=== PATIENT | male | born 1955 | race Two or more races ===

== ENCOUNTER 2019-09-10 09:45 | Outpatient (CLI) | payer OTHER ==
[~2019-09-10] VITALS: Ht 165.1 cm; Wt 72.6 kg
--- NOTE | 2019-09-10 14:00 | Consultation ---
DATE OF CONSULTATION: 09/10/2019 GASTROENTEROLOGY CONSULTATION CONSULTING PHYSICIAN: Fabian Linn MD. CHIEF COMPLAINT: Referral for screening colonoscopy. PAST MEDICAL HISTORY: 1. Diabetes. 2. Asthma. 3. Hypertension. 4. Cirrhosis. PAST SURGICAL HISTORY: None. MEDICATIONS: Please see medication reconciliation list. FAMILY HISTORY: No family history of GI malignancy. SOCIAL HISTORY: The patient used to drink, quit in 2018. Denies any IV drug abuse. Denies any tobacco abuse. ALLERGIES: No known drug allergies. PHYSICAL EXAMINATION: VITAL SIGNS: Temperature 98.4, blood pressure 107/79, pulse 72, respirations 20. HEENT: Normocephalic and atraumatic. Sclerae anicteric. NECK: Supple. No evidence of obvious lymphadenopathy. CARDIOVASCULAR: Regular rate and rhythm. Plus S1-S2. LUNGS: Clear to auscultation bilaterally ABDOMEN: Positive bowel sounds. Soft and nontender. No rebound. No guarding. No peritoneal sign. EXTREMITIES: No cyanosis, no clubbing, no edema. ASSESSMENT AND PLAN: A 64-year-old male, who needs a screening colonoscopy. Also, he had history of cirrhosis, so needs an endoscopy for evaluation of varices. Plan to schedule when the authorization is obtained. Also, the patient off and on had stool OB positive for blood. Fabian Linn M.D. DR: NICO JOB#: [id number] CC:
[2019-09-10] MEDS ORDERED: VITAMIN D350 MC1 PO (14:42)
[2019-09-10] MEDS ORDERED: DULERA 100 MCG/13 GM INH (14:42)
[2019-09-10] MEDS ORDERED: ZYRTEC10 MG ORAL (14:42)
[2019-09-10] MEDS ORDERED: HUMALOG KW200 UNIT/1 SQ (14:42)
[2019-09-10] MEDS ORDERED: LANTUS SOL100 UNIT/1 SUBQ (14:42)
[2019-09-10] MEDS ORDERED: PROVENTIL HFA6.7 G1 IH (14:42)
[2019-09-10] MEDS ORDERED: LOSARTAN POTASS25 MG ORAL (14:42)
== END 2019-09-10 11:45 | disposition home or self-care (01) ==
LOC: PAN 09:45
DX: K74.60 Unspecified cirrhosis of liver (principal); E11.9 Type 2 diabetes mellitus without complications; I10 Essential (primary) hypertension
CPT/HCPCS: G0463